=== PATIENT | female | born 1970 | race Two or more races ===

== ENCOUNTER 2024-06-22 21:56 | Emergency (ER) | payer MEDICAID, OTHER ==
[~2024-06-22] VITALS: Ht 157.5 cm; Wt 77.0 kg
[2024-06-22 22:24] LABS: Basophils # (auto) 0 10 ^3/uL (0-0.2); Basophils % (auto) 0.3 % (0.0-2.0); Eosinophils # (auto) 0.1 10 ^3/uL (0-0.8); Eosinophils % (auto) 1.3 % (0.0-7.0); Hemoglobin 14.1 g/dL (12.2-16.2); Lymphocytes # (auto) 3.5 10 ^3/uL (0.4-5.4); Lymphocytes % (auto) 43.6 % (10.0-50.0); Mean Corpuscular Hemoglobin 32.1 pg (28.0-32.0); Mean Corpuscular Hgb Conc. 34.4 g/dL (32.0-36.0); Mean Corpuscular Volume 93.3 fL (80.0-100.0); Monocytes # (auto) 0.3 10 ^3/uL (0-1.3); Monocytes % (auto) 4.2 % (0.0-12.0); Neutrophils # (auto) 4.1 10 ^3/uL (1.6-8.6); Neutrophils % (auto) 50.6 % (37.0-80.0); Nucleated Red Blood Cells % 0.1 %; Platelet Count (auto) 265 10^3/uL (140-450); White Blood Cell 8.1 10^3/uL (4.4-10.8)
--- NOTE | 2024-06-22 22:27 | ED.PDOC ---
History of Present Illness HPI Comments 54-year-old female came to emergency room via EMS due to dizziness. Patient states she has been having ear pain and sinus congestion for a while. Patient decided to boil some eucalyptus leaves earlier and inhale them to relieve the congestion. Patient however started having headaches, dizziness and started having with a multiple episodes of nausea and vomiting. Chief Complaint: Dizziness Time Seen by MD: 22:26 Reviewed Notes: Electrical Appliance Mechanic Notes Allergies: Coded Allergies: Tramadol (Verified Allergy, Unknown, 06/22/24) Information Source: Patient, Emergency Med Personnel Mode of Arrival: EMS Severity: Moderate Timing: Hours Duration: Since onset Prehospital treatment: None Past Medical History PAST MEDICAL HISTORY: GERD, High Lipids, Thyroid Surgical History: Denies all surgeries MOLD RUNNER History: Denies all MOLD RUNNER Hx Family History Family History: Reviewed,noncontributory to illness Social History Smoker: Non-Smoker Alcohol: Denies ETOH Use Drugs: Denies Drug Use Lives In: Home Constitutional: denies: chills, diaphoresis, fatigue, fever, malaise, sweats, weakness, others EENTM: reports: ear pain, nose congestion; denies: blurred vision, double vision, ear bleeding, ear discharge, ear drainage, ear ringing, eye pain, eye redness, hearing loss, mouth pain, mouth swelling, nasal discharge, nose bleeding, nose pain, photophobia, tearing, throat pain, throat swelling, voice changes, others Respiratory: denies: cough, hemoptysis, orthopnea, SOB at rest, shortness of breath, SOB with excertion, stridor, wheezing, others Cardiovascular: denies: chest pain, dizzy spells, diaphoresis, Dyspnea on exertion, edema, irregular heart beat, left arm pain, lightheadedness, palpitations, PND, syncope, others Gastrointestinal: reports: nausea, vomiting; denies: abdomen distended, abdominal pain, blood streaked bowels, constipated, diarrhea, dysphagia, difficulty swallowing, hematemesis, melena, poor appetite, poor fluid intake, rectal bleeding, rectal pain, others Genitourinary: denies: abnormal vagina bleeding, burning, dyspareunia, dysuria, flank pain, frequency, hematuria, incontinence, pain, , vagina discharge, urgency, others Neurological: reports: dizziness, headache; denies: fainting, left sided numbness, left sided weakness, numbness, paresthesia, pre-existing deficit, right sided numbness, right sided weakness, seizure, speech problems, tingling, tremors, weakness, others Musculoskeletal: denies: back pain, gout, joint pain, joint swelling, muscle pain, muscle stiffness, neck pain, others Integumetry: denies: bruises, change in color, change in hair/nails, dryness, laceration, lesions, lumps, rash, wounds, others Allergic/Immunocompromised: denies: Difficulty Healing, Frequent Infections, Hives, Itching, others Hematologic/Lymphatic: denies: anemia, blood clots, easy bleeding, easy bruisin g, swollen glands, others Endocrine: denies: excessive hunger, excessive sweating, excessive thirst, excessive urination, flushing, intolerance to cold, intolerance to heat, unexplained weight gain, unexplained weight loss, others Psychiatric: denies: anxiety, bipolar disorder, depression, hopeless, panic disorder, schizophrenia, sleepless, suicidal, others Physical Exam General Appearance: No Apparent Distress, Normal HEENT: Normal ENT Inspection, Pharynx Normal, TMs Normal Neck: Full Range of Motion, Non-Tender, Normal, Normal Inspection Respiratory: Chest Non-Tender, Lungs Clear, No Accessory Muscle Use, No Respir atory Distress, Normal Breath Sounds Cardiovascular: No Edema, No JVD, No Murmur, No Gallop, Normal Peripheral Pulses, Regular Rate/Rhythm Breast Exam: Deferred Gastrointestinal: No Organomegaly, Non Tender, No Pulsatile Mass, Normal Bowel Sounds, Soft Genitalia: Deferred Pelvic: Deferred Rectal: Deferred Extremities: No calf tenderness, Normal capillary refill, Normal inspection, Normal range of motion, Non-tender, No pedal edema Musculoskeletal : Apperance: Normal Neurologic: Alert, 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 Was a procedure done?: No Differential Dx Considerations may include: Sinusitis, pharyngitis, headache, dizziness X-Ray, Labs, Meds, VS Vital Signs Date Time Temp Pulse Resp B/P (MAP) Pulse Ox O2 Delivery O2 Flow Rate FiO2 06/22/24 22:50 62 14 97 Room Air* 0 21 06/22/24 22:50 97.7 62 14 111/68 (82) 97 97.7 06/22/24 22:10 97.6 60 20 140/76 (97) 97 97.6 06/22/24 22:08 58 Lab Test 06/22/24 22:15 Range/Units White Blood Count 8.1 4.4-10.8 10^3/uL Red Blood Count 4.40 4.0-5.20 10^6/uL Hemoglobin 14.1 12.2-16.2 g/dL Hematocrit 41.0 36.0-46.0 % Mean Corpuscular Volume 93.3 80.0-100.0 fL Mean Corpuscular Hemoglobin 32.1 H 28.0-32.0 pg Mean Corpuscular Hemoglobin Concent 34.4 32.0-36.0 g/dL Red Cell Distribution Width 12.0 11.8-14.3 % Platelet Count 265 140-450 10^3/uL Mean Platelet Volume 7.5 6.9-10.8 fL Neutrophils (%) (Auto) 50.6 37.0-80.0 % Lymphocytes (%) (Auto) 43.6 10.0-50.0 % Monocytes (%) (Auto) 4.2 0.0-12.0 % Eosinophils (%) (Auto) 1.3 0.0-7.0 % Basophils (%) (Auto) 0.3 0.0-2.0 % Neutrophils # (Auto) 4.1 1.6-8.6 10 ^3/uL Lymphocytes # (Auto) 3.5 0.4-5.4 10 ^3/uL Monocytes # (Auto) 0.3 0-1.3 10 ^3/uL Eosinophils # (Auto) 0.1 0-0.8 10 ^3/uL Basophils # (Auto) 0 0-0.2 10 ^3/uL Nucleated Red Blood Cells 0.1 % Sodium Level 139 136-145 mmol/L Potassium Level 2.6 L 3.5-5.1 mmol/L Chloride Level 106 98-107 mmol/L Carbon Dioxide Level 22 20-31 mmol/L Anion Gap 11 5-15 Blood Urea Nitrogen 8 L 9-23 mg/dL Creatinine 0.74 0.550-1.02 mg/dL Glomerular Filtration Rate Calc 95 >90 mL/min BUN/Creatinine Ratio 10.8 10.0-20.0 Serum Glucose 136 H 74-106 mg/dL Calcium Level 9.6 8.7-10.4 mg/dL Total Bilirubin 0.6 0.2-1.0 mg/dL Aspartate Amino Transferase (AST) 31 13-40 U/L Alanine Aminotransferase (ALT) 46 H 7-40 U/L Alkaline Phosphatase 96 46-116 U/L Troponin I High Sensitivity < 3 L </=34 ng/L Total Protein 7.7 5.7-8.2 g/dL Albumin 5.0 H 3.2-4.8 g/dL Current Medications Medications (Trade) Dose Ordered Sig/Mina Route Start Time Stop Time Status Last Admin Ondansetron HCl (Zofran) 4 mg ONCE ONCE IV 06/22/24 22:15 06/22/24 22:16 DC 06/22/24 23:00 Sodium Chloride 1,000 ml @ 1,000 mls/hr Q1H ONCE IV 06/22/24 22:15 06/22/24 23:14 DC 06/22/24 23:00 CHEST RADIOGRAPH Indication: nausea Technique: Single frontal view of the chest was obtained Comparison: None FINDINGS: Lines and Tubes: None Lungs: No focal consolidation. Pleura: No effusion. No pneumothorax. Cardiomediastinal contours: Unremarkable Bones: No acute osseous abnormality. IMPRESSION: 1. No acute cardiopulmonary disease. Time of 1ST Reevaluation: 22:17 Reevaluation 1ST: Unchanged Time of 2ND Reevaluation: 23:43 Reevaluation 2ND: Resolved Patient Education/Counseling: Diagnosis, Treatment, Prognosis, Need For Follow Up Family Education/Counseling: Diagnosis, Treatment, Prognosis, Need For Follow Up Additional Information Previous medical encounters reviewed: The following tests were ordered, and results were reviewed by me: Chest Xray: 1. No acute cardiopulmonary disease. Additional Information was gathered from interviewing the following independent historians: Paramedics I reviewed and agreed with the following test results read by other providers: cxr I discussed treatment and results with medical personnel and: Patient Comprehensive systems review obtained and negative except for what is stated in the HPI. pt is feeling improved. she would like to go home. i will prescribe zofran for her. i will also prescribe Motrin and Claritin for her sinus congestion Departure 1 Departure Time of Disposition: 23:45 Impression: Primary Impression: Sinus congestion Additional Impression: Nausea & vomiting Qualified Codes: R11.2 - Nausea with vomiting, unspecified Disposition: 01 HOME / SELF CARE / HOMELESS Condition: Good e-Prescriptions Ibuprofen Micronized (MOTRIN TABLET) 600 Mg Tb 600 MG PO TID PRN, #40 TAB *Black box warning-NSAIDS can increase risk of CT & hypertension, GI irritation, ulceration, bleed, perferation. Do not use post cardiac surgery. Use short duration/lowest effective dose. Prov: LAZARO MORALES MD 06/22/24 Loratadine (Claritin) 10 Mg Chw 10 MG PO DAILY for 5 Days, #5 TAB.CHEW Prov: LAZARO MORALES MD 06/22/24 Ondansetron Odt 4MG Tab (ZOFRAN PO) 4 Mg Tb 4 MG PO Q6HP PRN for 2 Days, #8 TAB ODT TAB-DISSOLVE IN MOUTH, THEN SWALLOW Prov: LAZAOR MORALES MD 06/22/24 Discharged With: Self, Spouse Critical Care Note Critical Care Time?: No Stability Stability form required: No Heart Score Heart Score: Heart Score Response (Comments) Value History N/A 0 EKG N/A 0 Age N/A 0 Risk Factors N/A 0 Troponin N/A 0 Total 0 I personally scribed for LAZARO MORALES MD ([email or web address]) on 06/22/24 at 22:27. Electronically submitted by Gonzales Sharp ([email or web address]). I personally scribed for LAZARO MORALES MD ([email or web address]) on 06/22/24 at 23:28. Electronically submitted by Gonzales Sharp ([email or web address]). LAZARO MORALES MD Jun 22, 2024 22:27
[2024-06-22 22:49] LABS: Alkaline Phosphatase 96 U/L (46-116); Anion Gap 11 (5-15); Aspartate Aminotransferase 31 U/L (13-40); BUN/Creatinine Ratio 10.8 (10.0-20.0); Bilirubin, Total 0.6 mg/dL (0.2-1.0); Calcium 9.6 mg/dL (8.7-10.4); Carbon Dioxide 22 mmol/L (20-31); Chloride 106 mmol/L (98-107); Sodium 139 mmol/L (136-145); Total Protein 7.7 g/dL (5.7-8.2)
[2024-06-22 22:50] VITALS: BP 111/68; PULSE 62; RESP 14; TEMP 97.7; O2SAT 97
[2024-06-22 22:52] LABS: Alanine Aminotransferase 46 U/L (7-40); Blood Urea Nitrogen 8 mg/dL (9-23); Glucose 136 mg/dL (74-106); Potassium 2.6 mmol/L (3.5-5.1)
[2024-06-22] MEDS: SODIUM CHLORIDE 0.9% 1,000 ML IV ONE (23:00)
[2024-06-22] MEDS: ONDANSETRON HCL 4 MG/2 ML VIAL IV ONE (23:00)
--- NOTE | 2024-06-22 23:03 | DVH ---
CHEST RADIOGRAPH Indication: nausea Technique: Single frontal view of the chest was obtained Comparison: None FINDINGS: Lines and Tubes: None Lungs: No focal consolidation. Pleura: No effusion. No pneumothorax. Cardiomediastinal contours: Unremarkable Bones: No acute osseous abnormality. IMPRESSION: 1. No acute cardiopulmonary disease.
[2024-06-22] MEDS: POTASSIUM CHL 20 Meq TABLET PO ONE (23:44)
[2024-06-22] MEDS ORDERED: IBU600T PO (23:46)
[2024-06-22] MEDS ORDERED: ZOFR4T PO (23:46)
[2024-06-22] MEDS ORDERED: [UNRECOGNIZED DRUG - CODE] PO (23:46)
--- NOTE | 2024-06-28 10:05 | ECG ---
[facility] Test Date: 2024-06-22 Test Time: 22:08:25 Pat Name: PRERNA MENDOZADepartment: ED Room: Gender: F Motorboat Mechanic Inboard/Outboard: TAMIA : 1970 Requested By: LAZARO MORALES Order Number: [id number] Reading MD: Marino Alonso Measurements Intervals [place] Rate: 58 P: 44 MS: 165 QRS: 6 QRSD: 84 T: -7 QT: 548 QTc: 539 Interpretive Statements Sinus rhythm Low voltage, precordial leads Probable anteroseptal infarct, old Prolonged QT interval Electronically Signed On 06-29-2024 13:35:08 PDT by Marino Alonso Please click the below link to view image of tracing.
== END 2024-06-23 00:18 | disposition home or self-care (01) ==
LOC: EDBD 21:56 → ER 21:56
DX: R09.81 Nasal congestion (principal); R11.2 Nausea with vomiting, unspecified; E03.9 Hypothyroidism, unspecified; E78.5 Hyperlipidemia, unspecified; K21.9 Gastro-esophageal reflux disease without esophagitis; Z88.5 Allergy status to narcotic agent
CPT/HCPCS: 36415; 71045; 80053; 82947; 84484; 85025; 93005; 96361; 96374; 99285; J2405; J7030

== ENCOUNTER 2024-06-28 10:53 | Inpatient (IN) | payer MEDICAID ==
[~2024-06-28] VITALS: Ht 152.4 cm; Wt 79.6 kg
[~2024-06-28 10:53] MED LIST: IBU600T PO; ZOFR4T PO; [UNRECOGNIZED DRUG - CODE] PO
--- NOTE | 2024-06-28 11:37 | ED.PDOC ---
HPI (NEURO) HPI Comments 54 y/o F, with PMHx of GERD and HLD presents to the ED for CC of dizziness. Patient states, that she has been experiencing symptoms of vertigo x6days with associated symptoms of nausea and vomiting. Patient relays, that she was seen at [facility] on both Tuesday (06/22/24) and Tuesday (06/23/24) and was discharged with unremarkable findings. Patient comments, that symptoms have worsened since last ED visit and has been unable to do daily activities. Patient reports, feeling as if the room is spinning around her. Patient denies blurred vision, headache, numbness, chills, or body-aches. No other associated symptoms, modifiers, recent injuries or sick contacts present at this time. Chief Complaint: Dizziness Time Seen by MD: 11:00 Primary Care Provider: UNKNOWN Reviewed Notes: Nurses Notes, Medications, Allergies Information Source: Patient Mode of Arrival: Wheelchair Severity: Moderate Dizziness/Weakness Severity: Unable to do activities Headache Severity: None Timing: Days Duration: Since onset Prehospital treatment: None Onset: At rest Circumstances: Spontaneous Symptoms: Vertigo Before: Normal During: Awake After: Normal Mentation History of: None Modifying factors: Nothing Associated Signs and Symptoms: Nausea, Vomiting Past Medical History PAST MEDICAL HISTORY: GERD, High Lipids, Thyroid Surgical History: Denies all surgeries 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 ELEMENTARY ASSISTANT PRINCIPAL Hx Family History Family History: Reviewed,noncontributory to illness Social History Smoker: Non-Smoker Alcohol: Denies ETOH Use Drugs: Denies Drug Use Lives In: Home Constitutional: denies: chills, diaphoresis, fatigue, fever, malaise, sweats, weakness, others EENTM: denies: blurred vision, double vision, ear bleeding, ear discharge, ear drainage, ear pain, ear ringing, eye pain, eye redness, hearing loss, mouth pain, mouth swelling, nasal discharge, nose bleeding, nose congestion, nose pain, photophobia, tearing, throat pain, throat swelling, voice changes, others Respiratory: denies: cough, hemoptysis, orthopnea, SOB at rest, shortness of breath, SOB with excertion, stridor, wheezing, others Cardiovascular: denies: chest pain, dizzy spells, diaphoresis, Dyspnea on exertion, edema, irregular heart beat, left arm pain, lightheadedness, palpitations, PND, syncope, others Gastrointestinal: reports: nausea, vomiting; denies: abdomen distended, abdomi nal pain, blood streaked bowels, constipated, diarrhea, dysphagia, difficulty swallowing, hematemesis, melena, poor appetite, poor fluid intake, rectal bleeding, rectal pain, others Genitourinary: denies: abnormal vagina bleeding, burning, dyspareunia, dysuria, flank pain, frequency, hematuria, incontinence, pain, , vagina discharge, urgency, others Neurological: reports: dizziness; denies: fainting, headache, left sided numbness, left sided weakness, numbness, paresthesia, pre-existing deficit, right sided numbness, right sided weakness, seizure, speech problems, tingling, tremors, weakness, others Musculoskeletal: denies: back pain, gout, joint pain, joint swelling, muscle pain, muscle stiffness, neck pain, others Integumetry: denies: bruises, change in color, change in hair/nails, dryness, laceration, lesions, lumps, rash, wounds, others Allergic/Immunocompromised: denies: Difficulty Healing, Frequent Infections, Hives, Itching, others Hematologic/Lymphatic: denies: anemia, blood clots, easy bleeding, easy bruising, swollen glands, others Endocrine: denies: excessive hunger, excessive sweating, excessive thirst, excessive urination, flushing, intolerance to cold, intolerance to heat, unexplained weight gain, unexplained weight loss, others Psychiatric: denies: anxiety, bipolar disorder, depression, hopeless, panic disorder, schizophrenia, sleepless, suicidal, others All Other Systems: Reviewed and Negative Physical Exam General Appearance: Moderate Distress HEENT: Normal ENT Inspection, Pharynx Normal, TMs Normal Neck: Full Range of Motion, Non-Tender, Normal, Normal Inspection Respiratory: Chest Non-Tender, Lungs Clear, No Accessory Muscle Use, No Respiratory Distress, Normal Breath Sounds Cardiovascular: No Edema, No JVD, No Murmur, No Gallop, Normal Peripheral Pulses, Regular Rate/Rhythm Breast Exam: Deferred Gastrointestinal: No Organomegaly, Non Tender, No Pulsatile Mass, Normal Bowel Sounds, Soft Genitalia: Deferred Pelvic: Deferred Rectal: Deferred Extremities: No calf tenderness, Normal capillary refill, Normal inspection, Normal range of motion, Non-tender, No pedal edema Musculoskeletal : Apperance: Normal Neurologic: Alert, 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 Was a procedure done?: No Differential Diagnosis (SZ) Seizure: Psychogenic Seizure, Closed Head Injury, CVA/TIA General Weakness: Vertigo: central, Vertigo: peripheral X-Ray, Labs, Meds, VS Vital Signs Date Time Temp Pulse Resp B/P (MAP) Pulse Ox O2 Delivery O2 Flow Rate FiO2 06/28/24 12:23 60 06/28/24 11:18 97.5 61 21 118/79 (92) 97 97.5 Lab Test 06/28/24 11:50 06/28/24 11:19 Range/Units White Blood Count 6.8 4.4-10.8 10^3/uL Red Blood Count 4.83 4.0-5.20 10^6/uL Hemoglobin 15.7 12.2-16.2 g/dL Hematocrit 45.3 # 36.0-46.0 % Mean Corpuscular Volume 93.8 80.0-100.0 fL Mean Corpuscular Hemoglobin 32.4 H 28.0-32.0 pg Mean Corpuscular Hemoglobin Concent 34.6 32.0-36.0 g/dL Red Cell Distribution Width 12.1 11.8-14.3 % Platelet Count 287 140-450 10^3/uL Mean Platelet Volume 7.3 6.9-10.8 fL Neutrophils (%) (Auto) 65.1 37.0-80.0 % Lymphocytes (%) (Auto) 29.6 10.0-50.0 % Monocytes (%) (Auto) 3.6 0.0-12.0 % Eosinophils (%) (Auto) 1.2 0.0-7.0 % Basophils (%) (Auto) 0.5 0.0-2.0 % Neutrophils # (Auto) 4.4 1.6-8.6 10 ^3/uL Lymphocytes # (Auto) 2.0 0.4-5.4 10 ^3/uL Monocytes # (Auto) 0.2 0-1.3 10 ^3/uL Eosinophils # (Auto) 0.1 0-0.8 10 ^3/uL Basophils # (Auto) 0 0-0.2 10 ^3/uL Nucleated Red Blood Cells 0.1 % Sodium Level 141 136-145 mmol/L Potassium Level 3.9 3.5-5.1 mmol/L Chloride Level 105 98-107 mmol/L Carbon Dioxide Level 27 20-31 mmol/L Anion Gap 9 5-15 Blood Urea Nitrogen 10 9-23 mg/dL Creatinine 0.83 0.550-1.02 mg/dL Glomerular Filtration Rate Calc 83 >90 mL/min BUN/Creatinine Ratio 12.0 10.0-20.0 Serum Glucose 105 74-106 mg/dL Calcium Level 10.2 8.7-10.4 mg/dL Troponin I High Sensitivity < 3 L </=34 ng/L POC Glucose 91 70-106 mg/dl [place] [id number] Ph: [phone] DIAGNOSTIC IMAGING Diagnostic Imaging Report : [id number] Signed PATIENT: PRERNA CAGLE EACCT: [id number] UNIT: [id number] : 1970 LOC: ER ROOM / BED: / AGE / SEX: 54 / F ADM STATUS: REG ER SERVICE 1131 ORDERING PHYSICIAN: BALBINA FLEMING MD PROCEDURE(s): HWOCT - HEAD WITHOUT CONTRAST REASON: dizzy ORDER NUMBER(s): [id number], ACCESSION NUMBER(s): [id number] CT brain without contrast CLINICAL INDICATION: Altered mental status FINDINGS: The study was performed in a multidetector scanner. This study performed taking axial images from the skull base up to the vertex. Both brain and bone windows are photographed. Dose lowering techniques have been used including automated exposure control and adjustment of mA and/or KV according to patient size. Normal and symmetrical shape and density of brain parenchyma above and below the tentorium is seen. There is no mass, midline shift or hydrocephalus. No intra/extra-axial collections demonstrated. There is no intracranial hemorrhage. The calvarium is intact. IMPRESSION: 1. Normal brain and skull. Computed Tomographic Radiation Dosimetry Report: Total CTDI vol = 54 mGy Total DLP = 954 mGy-cm All CT scans at this medical facility are performed using dose modulation techniques as appropriate to a performed exam including the following: Automated exposure control was utilized; adjustment of the MA and/or KvP according to patient size; and use of iterative reconstruction technique. ATED BY: ROGERS SANDERS MD DICTATED DATE/TIME: 06/28/24 120 SIGNED BY: ROGERS SANDERS MD SIGNED DATE/TIME: 06/28/24 1209 Patient alert. Complaining of dizziness. Vitals stable. Answering questions. Was seen here for same symptom for the past few days. CT of the head. Establish intravenous access. Was given Ativan. Reviewed her previous visit. Explained to the patient. Continue monitoring. Time of 1ST Reevaluation: 11:30 Reevaluation 1ST: Unchanged Patient Education/Counseling: Diagnosis, Treatment Family Education/Counseling: No Family Present Departure 1 Departure Time of Disposition: 11:48 Impression: Primary Impression: Autonomic disorder Disposition: ADMITTED INPATIENT Admit to: Med Surg Condition: Guarded Critical Care Note Critical Care Time?: No Stability Stability form required: No Heart Score Heart Score: Heart Score Response (Comments) Value History N/A 0 EKG N/A 0 Age N/A 0 Risk Factors N/A 0 Troponin N/A 0 Total 0 I personally scribed for BALBINA FLEMING MD ([email or web address]) on 06/28/24 at 11:37. Electronically submitted by Latha Rubio ([employer]). I personally scribed for BALBINA FLEMING MD ([email or web address]) on 06/28/24 at 12:23. Electronically submitted by Latha Rubio ([employer]). I personally scribed for BALBINA FLEMING MD ([email or web address]) on 06/28/24 at 12:28. Electronically submitted by Latha Rubio ([employer]). BALBINA FLEMING MD Jun 28, 2024 11:37
[2024-06-28 12:03] LABS: Basophils # (auto) 0 10 ^3/uL (0-0.2); Basophils % (auto) 0.5 % (0.0-2.0); Eosinophils # (auto) 0.1 10 ^3/uL (0-0.8); Eosinophils % (auto) 1.2 % (0.0-7.0); Hematocrit 45.3 % (36.0-46.0); Hemoglobin 15.7 g/dL (12.2-16.2); Lymphocytes % (auto) 29.6 % (10.0-50.0); Mean Corpuscular Hemoglobin 32.4 pg (28.0-32.0); Mean Corpuscular Hgb Conc. 34.6 g/dL (32.0-36.0); Mean Corpuscular Volume 93.8 fL (80.0-100.0); Monocytes # (auto) 0.2 10 ^3/uL (0-1.3); Monocytes % (auto) 3.6 % (0.0-12.0); Neutrophils # (auto) 4.4 10 ^3/uL (1.6-8.6); Neutrophils % (auto) 65.1 % (37.0-80.0); Nucleated Red Blood Cells % 0.1 %; Platelet Count (auto) 287 10^3/uL (140-450); Red Blood Cells 4.83 10^6/uL (4.0-5.20); Red Cell Distribution Width 12.1 % (11.8-14.3); White Blood Cell 6.8 10^3/uL (4.4-10.8)
--- NOTE | 2024-06-28 12:11 | DVH ---
CT brain without contrast CLINICAL INDICATION: Altered mental status FINDINGS: The study was performed in a multidetector scanner. This study performed taking axial image s from the skull base up to the vertex. Both brain and bone windows are photographed. Dose lowering techniques have been used including automated exposure control and adjustment of mA and /or KV according to patient size. Normal and symmetrical shape and density of brain parenchyma above and below the tentorium is seen. T here is no mass, midline shift or hydrocephalus. No intra/extra-axial collections demonstrated. There is no intracranial hemorrhage. The calvarium is intact. IMPRESSION: 1. Normal brain and skull. Computed Tomographic Radiation Dosimetry Report: Total CTDI vol = 54 mGy Total DLP = 954 mGy-cm All C T scans at this medical facility are performed using dose modulation techniques as appropriate to a p erformed exam including the following: Automated exposure control was utilized; adjustment of the MA and/or KvP according to patient size; and use of iterative reconstruction technique.
[2024-06-28 12:13] LABS: Chloride 105 mmol/L (98-107); Potassium 3.9 mmol/L (3.5-5.1); Sodium 141 mmol/L (136-145)
[2024-06-28 12:14] LABS: Anion Gap 9 (5-15); Calcium 10.2 mg/dL (8.7-10.4); Carbon Dioxide 27 mmol/L (20-31)
[2024-06-28 12:19] LABS: Blood Urea Nitrogen 10 mg/dL (9-23); Glucose 105 mg/dL (74-106)
--- NOTE | 2024-06-28 15:54 | DVHHP2 ---
History of Present Illness Reason for Visit: dizziness History of Present Illness 54-year-old female with a past medical history of GERD, hyperlipidemia, thyroid disease, and right ankle surgery, presenting with persistent dizziness for the past four days. The patient states that her dizziness initially began as intermittent but has worsened progressively, prompting two prior ED visits, during which full workups were reportedly negative, and she was discharged home. She was prescribed meclizine twice daily and Zofran, which she has been taking as directed, but reports no relief of symptoms. Today, her dizziness became more intense, described as room-spinning vertigo, especially worse with walking. She also reports a severe headache but denies visual changes, chest pain, shortness of breath, nausea, vomiting, diarrhea, melena, or hematochezia. In the ED, she was administered Ativan and IV normal saline, with partial relief. Initial lab and imaging workup included: CBC: Unremarkable, BMP: Within normal limits Troponin: Negative, CT head: Unremarkable, Given her ongoing symptoms, a n eurology consult was requested for further evaluation. Additional workup including TSH and CT of the temporal bones/inner ears has been ordered to evaluate for vestibular pathology. Past Medical History see HPI above Past Surgical History See HPI above Family History Reviewed, non-contributory to the management of this case. Past Social History The patient lives at home, denies smoking, alcohol or illicit drugs abuse. Review of Systems Constitutional: No: Fever, Chills, Sweats, Weakness, Malaise, Other Eyes: No: Pain, Vision change, Conjunctivae inflammation, Eyelid inflammation, Other, Redness ENT: No: Ear pain, Ear discharge, Nose pain, Nose discharge, Nose congestion, Mouth pain, Mouth swelling, Throat pain, Throat swelling, Other Respiratory: No: Cough, Dry, Shortness of breath, SOB with excertion, Wheezing, Hemoptysis, Pleuritic Pain, Sputum, Wheezing, Other Cardiovascular: No: Chest Pain, Palpitations, Orthopnea, Paroxysmal Noc. Dyspnea, Edema, Lt Headedness, Other Gastrointestinal: No: Nausea, Vomiting, Abdominal Pain, Diarrhea, Constipation, Melena, Hematochezia, Other Genitourinary: No Dysuria, No Frequency, No Incontinence, No Hematuria, No Retention, No Other Musculoskeletal: No: other, neck pain, shoulder pain, arm pain, back pain, hand pain, leg pain, foot pain Skin: No: Rash, Lesions, Jaundice, Bruising, Other Neurological: Other (dizziness); No: Weakness, Numbness, Incoordination, Change in speech, Confusion, Seizures Allergies: Coded Allergies: Tramadol (Verified Allergy, Unknown, 06/22/24) Exam Vital Signs Vital Signs Date Time Temp Pulse Resp B/P (MAP) Pulse Ox O2 Delivery O2 Flow Rate FiO2 06/28/24 12:23 60 06/28/24 11:18 97.5 21 118/79 (92) 97 97.5 General Appearance: Alert, Oriented X3, Cooperative, No acute distress HEENT: Atraumatic, PERRLA, EOMI, Mucous membr. moist/pink Respiratory: Clear to auscultation, Normal air movement Cardiovascular: Regular rate, Normal S1, Normal S2, No murmurs Abdominal: Normal bowel sounds, Soft, No tenderness, No hepatospenomegaly, No masses Extremities: No clubbing, No cyanosis, No edema, Normal pulses, No tenderness/swelling Skin: No rashes, No breakdown, No significant lesion Neuro: Normal gait, Normal speech, Strength at 5/5 X4 ext, Normal tone, Sensation intact, Cranial nerves 3-12 NL, Other Labs/Xrays CT scan of the brain unremarkable I reviewed labs, imaging CT scan abdomen pelvis, EKG and all diagnostic studies on this patient from ED records and the medical chart Labs Test 06/28/24 11:50 06/28/24 11:19 Range/Units White Blood Count 6.8 4.4-10.8 10^3/uL Red Blood Count 4.83 4.0-5.20 10^6/uL Hemoglobin 15.7 12.2-16.2 g/dL Hematocrit 45.3 # 36.0-46.0 % Mean Corpuscular Volume 93.8 80.0-100.0 fL Mean Corpuscular Hemoglobin 32.4 H 28.0-32.0 pg Mean Corpuscular Hemoglobin Concent 34.6 32.0-36.0 g/dL Red Cell Distribution Width 12.1 11.8-14.3 % Platelet Count 287 140-450 10^3/uL Mean Platelet Volume 7.3 6.9-10.8 fL Neutrophils (%) (Auto) 65.1 37.0-80.0 % Lymphocytes (%) (Auto) 29.6 10.0-50.0 % Monocytes (%) (Auto) 3.6 0.0-12.0 % Eosinophils (%) (Auto) 1.2 0.0-7.0 % Basophils (%) (Auto) 0.5 0.0-2.0 % Neutrophils # (Auto) 4.4 1.6-8.6 10 ^3/uL Lymphocytes # (Auto) 2.0 0.4-5.4 10 ^3/uL Monocytes # (Auto) 0.2 0-1.3 10 ^3/uL Eosinophils # (Auto) 0.1 0-0.8 10 ^3/uL Basophils # (Auto) 0 0-0.2 10 ^3/uL Nucleated Red Blood Cells 0.1 % Sodium Level 141 136-145 mmol/L Potassium Level 3.9 3.5-5.1 mmol/L Chloride Level 105 98-107 mmol/L Carbon Dioxide Level 27 20-31 mmol/L Anion Gap 9 5-15 Blood Urea Nitrogen 10 9-23 mg/dL Creatinine 0.83 0.550-1.02 mg/dL Glomerular Filtration Rate Calc 83 >90 mL/min BUN/Creatinine Ratio 12.0 10.0-20.0 Serum Glucose 105 74-106 mg/dL Calcium Level 10.2 8.7-10.4 mg/dL Troponin I High Sensitivity < 3 L </=34 ng/L POC Glucose 91 70-106 mg/dl Assessment/Plan Assessment/Plan 54-year-old female with several days of worsening vertigo and headache, refractory to meclizine, with normal imaging and labs to date. Currently under evaluation for central vs. peripheral causes of vertigo. acute Persistent dizziness / vertigo unclear etiology ct brain negative Worsened over 4 days, described as spinning sensation/Worse with ambulation Trial of meclizine and Zofran unsuccessful Plan: Admit for observation and further workup ordered Neurology consult for evaluation of central cause (e.g., vestibular migr bronson, brainstem pathology) CT IA to evaluate for inner ear pathology Check TSH to rule out metabolic cause Continue scheduled meclizine and PRN Zofran Reassess frequently for changes in mental status or focal deficits acute Headache associated with dizziness Severe but no red-flag features (no vision change, neck stiffness, or focal findings) Plan: Monitor neuro status Treat with meclizine tid Avoid opiates or sedatives unless severe chronic History of thyroid disease Possible contributor to symptoms Plan: TSH ordered Adjust thyroid medications only if abnormal acute Hydration and symptom support Received IV fluids in ED Continue IV fluids as needed Monitor for orthostasis fen/ppx diet ivf no dvt ppx since pt is ambulatory scd no gi ppx since no hx of gerds or gi bleed DISPOSITION Admit for further evaluation of vertigo. Neurology and imaging pending. Continue symptomatic treatment, monitor for worsening symptoms, and reassess upon results of CT of ears and thyroid studies. Plan discussed with: Patient Date of Service: Jun 28, 2024 Billing Provider: JF MIRANDA DNP Common Visit Codes: [id number] INP/OBS CARE (HIGH) JF MIRANDA DNP Jun 28, 2024 15:54
[2024-06-28] MEDS ORDERED: MORPHINE SULFATE INJ 2 MG/ml SYRG IV PRN (16:45)
[2024-06-28] MEDS ORDERED: DOCUSATE SOD 100 MG CAP PO PRN (16:45)
[2024-06-28] MEDS ORDERED: NITROGLYCERIN 0.4 MG SL TAB SL PRN (16:45)
--- NOTE | 2024-06-28 17:34 | DVH ---
INDICATION: eval for acute vertigo EXAM DATE: 06/28/2024 04:42 PM COMPARISON: CT head 06/29/2023 TECHNIQUE: CT of the IAC without intravenous contrast. RADIATION DOSE: CTDIvol: 57.82 mGy, DLP: 589.16 mGy*cm FINDINGS: Right: The external auditory canal appears intact. The middle ear cavity is clear. The ossicular chain sergei ears intact. The facial nerve describes a normal course. No inner ear abnormality is identified. T he tegmen appears intact. The semicircular canals appear covered by bone. The mastoid air cells are well aerated and pneumatized. Left: The external auditory canal appears intact. The middle ear cavity is clear. The ossicular chain sergei ears intact. The facial nerve describes a normal course. No inner ear abnormality is identified. T he tegmen appears intact. The semicircular canals appear covered by bone. The mastoid air cells are well aerated and pneumatized. The limited visualized soft tissues are otherwise unremarkable. Chronic deformity of the left lamina papyracea. The orbits and globes unremarkable. IMPRESSION: CT of the temporal bones within normal limits.
--- NOTE | 2024-06-28 21:11 | DVHINCON2 ---
Date of service: Jun 28, 2024 Referring Physician Priya Reason for Consultation Evaluation for acute intractable dizziness despite medicine use History of Present Illness Mr. Ruben Mccarthy is a 54 years old right-handed female with a history of dyslipidemia, thyroid disorder, GERD, she came to the [facility] on 06/28/2024 with a chief complaint of dizziness. At this time, she was alert and fully oriented, he provided the following history without bilingual staff help Since 06/22/24, she was had constant dizziness where everything is spinning around, with unsteady gait, nausea, vomiting, blurry vision on the left side of the visual field, she has been bed-bound since. She feels left ear is blocked and sometimes the left ear is sensitive to noise. She denies focal weakness or numbness, she was never had similar problems previously, CBC, 06/28/2024: Unremarkable BMP, 06/28/2024: Unremarkable CMP, 06/22/2024: Unremarkable CT head, 06/28/2024: Normal brain and skull. CT, internal auditory canal, 06/28/2024: CT of the temporal bones within normal limits. Past Medical History Dyslipidemia, thyroid disorder, GERD Past Surgical History Right ankle fracture repair Family History Diabetes, cancer Social History She has no history of tobacco smoking, alcohol or drug abuse Allergies: Coded Allergies: Tramadol (Verified Allergy, Unknown, 06/22/24) Home Meds Active Scripts Ibuprofen Micronized (MOTRIN TABLET) 600 Mg Tb, 600 MG PO TID PRN, #40 TAB *Black box warning-NSAIDS can increase risk of UT & hypertension, GI irritation, ulceration, bleed, perferation. Do not use post cardiac surgery. Use short duration/lowest effective dose. Prov:LAZARO MORALES MD 06/22/24 Loratadine (Claritin) 10 Mg Chw, 10 MG PO DAILY for 5 Days, #5 TAB.CHEW Prov:LAZARO MORALES MD 06/22/24 Ondansetron Odt 4MG Tab (ZOFRAN PO) 4 Mg Tb, 4 MG PO Q6HP PRN for 2 Days, #8 TAB ODT TAB-DISSOLVE IN MOUTH, THEN SWALLOW Prov:LAZARO MORALES MD 06/22/24 Current Medications Current Medications Medications (Trade) Dose Ordered Sig/Mina Route PRN Reason Start Time Stop Time Status Last Admin Sodium Chloride 1,000 ml @ 120 mls/hr Q8H20M IV 06/28/24 16:45 Ondansetron HCl (Zofran) 4 mg Q4HP PRN IV NAUSEA / VOMITING 06/28/24 16:45 Docusate Sodium (Colace Capsule) 100 mg BIDPRN PRN PO FOR CONSTIPATION 06/28/24 16:45 Morphine Sulfate 2 mg Q4HPRN PRN IV SEVERE PAIN (7-10 PAIN SCALE) 06/28/24 16:45 Hold Nitroglycerin (Ntrostat Sublingual) 0.4 mg Q5MINP PRN SL FOR CHEST PAIN 06/28/24 16:45 Meclizine HCl (Antivert Tablet) 25 mg Q8HPRN PRN PO DIZZINESS 06/28/24 16:45 Review of Systems As above, the other systems are negative Vital Signs Vital Signs Date Time Temp Pulse Resp B/P (MAP) Pulse Ox O2 Delivery O2 Flow Rate FiO2 06/28/24 12:23 60 06/28/24 11:18 97.5 21 118/79 (92) 97 97.5 Physical Exam GENERAL EXAM: General: the patient is well developed and nourished. No acute distress. HEENT: Normocephalic, neck is supple, no carotid bruits. No mass. RESPIRATORY: Normal respiratory effort with symmetrical lung expansion. Lungs clear to auscultation. CARDIOVASCULAR: Regular rate and rhythm with no murmurs. S1, S2. ABDOMEN: Soft, nontender, normal bowel sound NEUROLOGICAL: MENTAL STATUS: Awake and alert. Oriented to person, place, time and general circumstances. Able to give personal history SPEECH, LANGUAGE, HIGHER CORTICAL FUNCTION: no aphasia or dysathria. CRANIAL NERVES: #2: Intact visual raygoza to confrontation. The optic discs were sharp. #3,4,6: Pupils are equal, round and reactive. EOMs full and conjugate. No nystagmus. #5: Facial sensation intact in all three divisions bilaterally. Mandibular strength intact. #7: Facial muscles symmetrical and strength intact. #8: Hearing grossly normal to voice. #9,10: Uvula and soft palate rise in the midline. Swallow and voice are normal. #11: Trapezius and sternomastoid strength intact bilaterally. #12: Tongue midline. No fasciculations or atrophy. SENSATION: Sensation to touch and pinprick is normal. MOTOR: Normal tone in the upper and lower extremity. Normal muscle bulk. No fasciculations. No abnormal movements or posturing. Muscle strength of the major groups in the upper extremities is 5/5. Muscle strength of the major groups in the lower extremities is 5/5. REFLEXES: Deep tendon reflexes are symmetrical. No pathological reflexes. CEREBELLAR/COORDINATION: Finger to nose is normal bilaterally. GAIT/STATION: deferred. Labs/Diagnostic Data Labs Test 06/28/24 11:50 06/28/24 11:19 Range/Units White Blood Count 6.8 4.4-10.8 10^3/uL Red Blood Count 4.83 4.0-5.20 10^6/uL Hemoglobin 15.7 12.2-16.2 g/dL Hematocrit 45.3 # 36.0-46.0 % Mean Corpuscular Volume 93.8 80.0-100.0 fL Mean Corpuscular Hemoglobin 32.4 H 28.0-32.0 pg Mean Corpuscular Hemoglobin Concent 34.6 32.0-36.0 g/dL Red Cell Distribution Width 12.1 11.8-14.3 % Platelet Count 287 140-450 10^3/uL Mean Platelet Volume 7.3 6.9-10.8 fL Neutrophils (%) (Auto) 65.1 37.0-80.0 % Lymphocytes (%) (Auto) 29.6 10.0-50.0 % Monocytes (%) (Auto) 3.6 0.0-12.0 % Eosinophils (%) (Auto) 1.2 0.0-7.0 % Basophils (%) (Auto) 0.5 0.0-2.0 % Neutrophils # (Auto) 4.4 1.6-8.6 10 ^3/uL Lymphocytes # (Auto) 2.0 0.4-5.4 10 ^3/uL Monocytes # (Auto) 0.2 0-1.3 10 ^3/uL Eosinophils # (Auto) 0.1 0-0.8 10 ^3/uL Basophils # (Auto) 0 0-0.2 10 ^3/uL Nucleated Red Blood Cells 0.1 % Sodium Level 141 136-145 mmol/L Potassium Level 3.9 3.5-5.1 mmol/L Chloride Level 105 98-107 mmol/L Carbon Dioxide Level 27 20-31 mmol/L Anion Gap 9 5-15 Blood Urea Nitrogen 10 9-23 mg/dL Creatinine 0.83 0.550-1.02 mg/dL Glomerular Filtration Rate Calc 83 >90 mL/min BUN/Creatinine Ratio 12.0 10.0-20.0 Serum Glucose 105 74-106 mg/dL Calcium Level 10.2 8.7-10.4 mg/dL Troponin I High Sensitivity < 3 L </=34 ng/L POC Glucose 91 70-106 mg/dl Assessment Vertigo Mnire disease Acute stroke Gait disturbance secondary to vertigo Left-sided blurred vision Plan/Recommendation Monitoring Supportive treatment Telemetry MR brain scan IV fluid Meclizine 25 mg Q 8 hours p.r.n. More recommendation per clinical course Prognosis: Poor This medical document was created using an electronic medical record system with [employer] dictation system. Although this document has been carefully reviewed, there may still be some phonetic and typographical errors. These areas are purely typographical due to imperfections of the software programs, and do not reflect any compromise in the patient's medical care. Plan discussed with: Patient, Other STEPHANIE WERNER MD Jun 28, 2024 21:11
[2024-06-28] MEDS: SODIUM CHLORIDE 0.9% 1,000 ML IV SCH (21:43)
[2024-06-28] MEDS: LORazepam 2MG/ML-1ML VIAL IV ONE (21:46)
[2024-06-28] MEDS: SODIUM CHLORIDE 0.9% 1,000 ML IV ONE (21:57)
[2024-06-28] MEDS ORDERED: LORazepam 2MG/ML-1ML VIAL IV PRN (22:00)
[2024-06-29 04:48] VITALS: PULSE 58; RESP 18
[2024-06-29 05:39] LABS: Basophils # (auto) 0 10 ^3/uL (0-0.2); Basophils % (auto) 0.2 % (0.0-2.0); Eosinophils # (auto) 0.1 10 ^3/uL (0-0.8); Eosinophils % (auto) 1.6 % (0.0-7.0); Hematocrit 40.3 % (36.0-46.0); Lymphocytes # (auto) 2.6 10 ^3/uL (0.4-5.4); Lymphocytes % (auto) 43.2 % (10.0-50.0); Mean Corpuscular Hemoglobin 32.1 pg (28.0-32.0); Mean Corpuscular Hgb Conc. 34.8 g/dL (32.0-36.0); Mean Corpuscular Volume 92.3 fL (80.0-100.0); Monocytes # (auto) 0.3 10 ^3/uL (0-1.3); Monocytes % (auto) 5.7 % (0.0-12.0); Neutrophils % (auto) 49.3 % (37.0-80.0); Nucleated Red Blood Cells % 0.1 %; Platelet Count (auto) 258 10^3/uL (140-450); Red Blood Cells 4.36 10^6/uL (4.0-5.20)
[2024-06-29 05:50] LABS: Alanine Aminotransferase 37 U/L (7-40); Albumin 4.4 g/dL (3.2-4.8); Alkaline Phosphatase 74 U/L (46-116); Anion Gap 7 (5-15); Aspartate Aminotransferase 23 U/L (13-40); BUN/Creatinine Ratio 12.8 (10.0-20.0); Bilirubin, Total 0.5 mg/dL (0.2-1.0); Blood Urea Nitrogen 11 mg/dL (9-23); Calcium 9.3 mg/dL (8.7-10.4); Carbon Dioxide 27 mmol/L (20-31); Chloride 106 mmol/L (98-107); Glucose 94 mg/dL (74-106); Potassium 3.9 mmol/L (3.5-5.1); Sodium 140 mmol/L (136-145); Total Protein 6.9 g/dL (5.7-8.2)
--- NOTE | 2024-06-29 08:21 | ECG ---
[facility] Test Date: 2024-06-28 Test Time: 11:10:49 Pat Name: PRERNA MENDOZADepartment: ER Room: [address] [place] [address] A Gender: F Acquisition Lead: JEM : 1970 Requested By: BALBINA FLEMING Order Number: [id number] Reading MD: Marino Alonso Measurements Intervals Willard Rate: 60 P: 43 OH: 153 QRS: 2 QRSD: 85 T: 40 QT: 446 QTc: 446 Interpretive Statements Sinus rhythm Electronically Signed On 06-29-2024 13:44:38 PDT by Marino Alonso Please click the below link to view image of tracing.
[2024-06-29 08:41] LABS: Folate (Folic Acid) 18.32 ng/mL (>5.38)
--- NOTE | 2024-06-29 11:26 | DVHPNRES ---
Progress Note Date Seen: Jun 29, 2024 Resident Creating Document: FAM KENNEDY RESIDENT Medical Necessity Reason Pt with a Central, PICC or Fol: No Subjective Review of Systems This is a 54-year-old female with a past medical history of GERD, hyperlipidemia, hypothyroidism presented to the ED with a chief complaint of continuous dizziness and vertigo associated with nausea and vomiting for last 4 days prior to this admission. The patient states that her dizziness initially began as intermittent but has worsened progressively, prompting two prior ED visits, during which full workups were reportedly negative, and she was discharged home. She was prescribed meclizine twice daily and Zofran, which she has been taking as directed, but reports no relief of symptoms. Today, her dizziness became more intense, described as room-spinning vertigo, especially worse with walking. She also reports a severe headache but denies visual changes, chest pain, shortness of breath, nausea, vomiting, diarrhea, melena, or hematochezia. Patient was seen and examined on the bedside. He is alert oriented x3. Complaint of vertigo and nausea and mentioned feeling better than yesterday and also complaint of tingling, numbness in the left face and left upper limb. Constitutional: No: Fever, Chills, Sweats, Weakness, Malaise, Other Eyes: No: Pain, Vision change, Conjunctivae inflammation, Eyelid inflammation, Other, Redness ENT: No: Ear pain, Ear discharge, Nose pain, Nose discharge, Nose congestion, Mouth pain, Mouth swelling, Throat pain, Throat swelling, Other Respiratory: Shortness of breath, improving No: Cough, Dry,Wheezing, Hemoptysis, Pleuritic Pain, Sputum, Wheezing, Other Cardiovascular: No: Chest Pain, Palpitations, Orthopnea, Paroxysmal Noc. Dyspnea, Edema, Lt Headedness, Other Gastrointestinal: No: Nausea, Vomiting, Abdominal Pain, Diarrhea, Constipation, Melena, Hematochezia, Other Musculoskeletal: No: other, neck pain, shoulder pain, arm pain, back pain, hand pain, leg pain, foot pain Neurological:; Tingling ,numbness, blurred vision, No: Weakness, Incoordination, Change in speech, Confusion, Seizures Objective vital signs Vital Sign Date Time Temp Pulse Resp B/P (MAP) Pulse Ox O2 Delivery O2 Flow Rate FiO2 06/29/24 10:00 62 13 120/81 (94) 98 06/29/24 08:26 Room Air* 0 21 06/29/24 08:26 98.2 98.2 Total Intake and Output 06/28/24 06/28/24 06/29/24 15:00 23:00 07:00 Intake Total 1600 ml Balance 1600 ml medications Current Medications Medications Dose Ordered Sig/Mina Route Start Time Stop Time Status Last Admin Dose Admin Sodium Chloride 1,000 ml @ 120 mls/hr Q8H20M IV 06/28/24 16:45 06/29/24 01:30 120 MLS/HR Ondansetron HCl 4 mg Q4HP PRN IV 06/28/24 16:45 Docusate Sodium 100 mg BIDPRN PRN PO 06/28/24 16:45 Morphine Sulfate 2 mg Q4HPRN PRN IV 06/28/24 16:45 Hold Nitroglycerin 0.4 mg Q5MINP PRN SL 06/28/24 16:45 Meclizine HCl 25 mg Q8HPRN PRN PO 06/28/24 16:45 Lorazepam 1 mg ONCE PRN IV 06/28/24 22:00 Examination Physical examination: General Appearance: Alert, Oriented X3, Cooperative, mild distress HEENT: Atraumatic, PERRLA, EOMI, Mucous membrane moist/pink Respiratory: Clear to auscultation, Normal air movement Cardiovascular: Regular rate, Normal S1, Normal S2, No murmurs, no chest wall tenderness Abdominal: Normal bowel sounds, Soft, No tenderness, No hepatospenomegaly, No masses Extremities: No clubbing, No cyanosis, No edema, Normal pulses, No tenderness/swelling Skin: No rashes, No breakdown, No significant lesion Neuro: Normal speech, Strength at 5/5 X4 ext, Normal tone, Sensation intact, grossly intact cranial nerves. Psych/Mental Status: Mental status NL, Mood NL laboratory and microbiology Laboratory Tests 06/29/24 04:58 Test 06/29/24 04:58 Range/Units Serum Glucose 94 74-106 mg/dL Labs and/or images reviewed: Labs reviewed by me, Image(s) reviewed by me Problem List/Assessment/Plan Problem List/Assessment/Plan Assessment and plan: # Acute vertigo, tingling and numbness, rule out stroke # Possible transient ischemic attack # Left-sided blurred vision # Possible benign paroxysmal positional vertigo. # Possible Meniere's disease # Gait disturbance secondary to vertigo - Head CT without contrast demonstrated normal brain and skull - CT of the internal auditory canal without IV contrast demonstrated temporal bones within normal limits, chronic deformity of the left lamina papyracea. - MRI of the head demonstrated no acute intracranial abnormality. - EKG with normal sinus rhythm - Neurology on board - Meclizine 25 mg Q 8 p.r.n. - IV normal saline at 120 mL/hour # Dyslipidemia - Atorvastatin 20 mg at HS # Chronic hypothyroidism - Levothyroxine 25 mcg at q.a.m. # PUD prophylaxis - Pepcid 20 mg p.o. daily # DVT prophylaxis - Lovenox 40 mg sc daily. Goal of care discussed with the patient for more than 20 minutes full code Plan discussed with Dr. Baldwin Plan discussed with: Patient, Other My Orders My Orders Orders - FAM KENNEDY Procedure Category Date Status Time Orthostatic Vital ORDERS 06/29/24 Transmitted Signs 08:07 Echo 2d Mode Cardiac US 06/29/24 Logged DOP 08:09 Date of Service: Jun 29, 2024 Billing Provider: JOSHUA BALDWIN MD Common Visit Codes: [id number] INP/OBS CARE(HIGH) FAM KENNEDY Jun 29, 2024 11:26 JOSHUA BALDWIN MD Jun 29, 2024 16:48
--- NOTE | 2024-06-29 12:44 | DVH ---
PROCEDURE: MRI OF THE BRAIN WITHOUT CONTRAST. CLINICAL INDICATION: 54 years old, Female; Vertigo. TECHNIQUE: Multiplanar, multi sequence MRI of the brain was performed without intravenous contrast. COMPARISON: CT scan of the head performed on 06/28/2024. FINDINGS: The signal abnormality of the brain parenchyma is within normal limits. There are no areas of restric darrell diffusion to suggest acute infarct. No evidence of space occupying mass lesion, extra-axial colle ctions or hemorrhage is noted. The ventricles, sulci and basal cisterns are intact. There is no signa l abnormality in the posterior fossa. The paranasal sinuses and mastoid air cells are well pneumatized. The orbits and nasopharynx are inta ct. The osseous structures are intact. The vessels of the skull base demonstrate signal void consistent with patency. IMPRESSION: 1. No acute intracranial abnormality. Normal MRI of the brain without intravenous contrast.
[2024-06-29] MEDS: FAMOTIDINE 20 MG TAB PO ONE (12:54)
--- NOTE | 2024-06-29 13:25 | DVHPN2 ---
Progress Note - Dictate Date Seen: Jun 29, 2024 Medical Necessity Reason Pt with a Central, PICC or Fol: No Subjective Mr. Ruben Mccarthy is a 54 years old right-handed female with a history of dyslipidemia, thyroid disorder, GERD, she came to the [facility] on 06/28/2024 with a chief complaint of dizziness. I have seen and examined the patient, I have discussed with her nurse, she was doing okay, alert and fully oriented, our bilingual staff helped me She reports the spinning sensation remained about the same as yesterday. Since 06/28/2024 10:00 a.m. she was numbness in the small area below the left eye, and the left side of lower lip. She denies numbness/weakness in the extremities. She feels the left ear is clogged No tenderness to palpation in the bilateral mastoid processes CBC, 06/28/2024: Unremarkable BMP, 06/28/2024: Unremarkable CMP, 06/22/2024: Unremarkable CT head, 06/28/2024: Normal brain and skull. CT, internal auditory canal, 06/28/2024: CT of the temporal bones within normal limits MRI head, 06/29/2024: No acute intracranial abnormality. Normal MRI of the brain without intravenous contrast vital signs Vital Sign Date Time Temp Pulse Resp B/P (MAP) Pulse Ox O2 Delivery O2 Flow Rate FiO2 06/29/24 10:00 62 13 120/81 (94) 98 06/29/24 08:26 Room Air* 0 21 06/29/24 08:26 98.2 98.2 Total Intake and Output 06/28/24 06/28/24 06/29/24 15:00 23:00 07:00 Intake Total 1600 ml Balance 1600 ml medications Current Medications Medications Dose Ordered Sig/Mina Route Start Time Stop Time Status Last Admin Dose Admin Sodium Chloride 1,000 ml @ 120 mls/hr Q8H20M IV 06/28/24 16:45 06/29/24 01:30 120 MLS/HR Ondansetron HCl 4 mg Q4HP PRN IV 06/28/24 16:45 Docusate Sodium 100 mg BIDPRN PRN PO 06/28/24 16:45 Morphine Sulfate 2 mg Q4HPRN PRN IV 06/28/24 16:45 Hold Nitroglycerin 0.4 mg Q5MINP PRN SL 06/28/24 16:45 Meclizine HCl 25 mg Q8HPRN PRN PO 06/28/24 16:45 Lorazepam 1 mg ONCE PRN IV 06/28/24 22:00 Levothyroxine Sodium 25 mcg QAM@0600 PO 06/30/24 06:00 Atorvastatin Calcium 20 mg HS PO 06/29/24 22:00 Famotidine 20 mg DAILY PO 06/30/24 10:00 objective General: the patient is well developed and nourished. No acute distress. MENTAL STATUS: Awake and alert. Oriented to person, place, time and general circumstances. Able to give personal history SPEECH, LANGUAGE, HIGHER CORTICAL FUNCTION: no aphasia or dysathria. CRANIAL NERVES: Pupils are equal, round and reactive. EOMs full and conjugate. No nystagmus. Facial sensation intact in all three divisions bilaterally. Mandibular strength intact. Facial muscles symmetrical and strength intact. SENSATION: Sensation to touch and pinprick is normal. MOTOR: Normal tone in the upper and lower extremity. Normal muscle bulk. No fasciculations. No abnormal movements or posturing. Muscle strength of the major groups in the extremities is 5/5. REFLEXES: Deep tendon reflexes are symmetrical. No pathological reflexes. CEREBELLAR/COORDINATION: Finger to nose is normal bilaterally. GAIT/STATION: deferred laboratory and microbiology Laboratory Tests 06/29/24 04:58 Test 06/29/24 04:58 Range/Units Serum Glucose 94 74-106 mg/dL Problem List Vertigo Mnire disease Acute stroke Gait disturbance secondary to vertigo Left-sided blurred vision So far the etiology of her complaints is unknown Assessment/Plan Monitoring Supportive treatment Telemetry IV fluid Meclizine 25 mg Q 8 hours p.r.n. Physical therapy More recommendation per clinical course This medical document was created using an electronic medical record system with [employer] dictation system. Although this document has been carefully reviewed, there may still be some phonetic and typographical errors. These areas are purely typographical due to imperfections of the software programs, and do not reflect any compromise in the patient's medical care. Prognosis poor Plan discussed with: Patient, Other Total Time (mins): 35 STEPHANIE WERNER MD Jun 29, 2024 13:25
[2024-06-29 17:03] VITALS: BP 124/78; PULSE 64; RESP 18; TEMP 98.2; O2SAT 98
[2024-06-29 17:06] LABS: Urine Bacteria None Seen /hpf (None Seen)
[2024-06-29 17:20] LABS: Urine Blood Negative /uL (Negative); Urine Clarity Clear (Clear); Urine Color Light-Yellow (Yellow); Urine Protein, UAD Negative (Negative); Urine Specific Gravity 1.008 (1.001-1.035); Urine Squamous Epithelial Cell FEW /hpf (<5); Urine Urobilinogen Normal (Negative); Urine WBC 4 /HPF (0-5); Urine pH 6.5 (5.0-9.0)
[2024-06-29 17:33] VITALS: RESP 18
[2024-06-29 21:00] VITALS: BP 101/49; PULSE 59; RESP 15; TEMP 98.2; O2SAT 92
[2024-06-29] MEDS: ATORVASTATIN 20 MG TAB PO SCH (21:46)
[2024-06-30] VITALS (7 sets, daily range): BP systolic 91–124; BP diastolic 56–91; PULSE 55–71; RESP 15–20; TEMP 97.3–98.1; O2SAT 94–100
--- NOTE | 2024-06-30 01:23 | DVHSR ---
APPROVED REPORT EXAM: Two-dimensional and M-mode echocardiogram with Doppler and color Doppler. Blood Pressure: 116/63 mmHg INDICATION Dizziness and Vertigo RISK FACTORS Height: 62, Weight: 163 DIMENSIONS LVDd4.4 (3.8-5.7cm)LA (2D)4.1 (1.9-4.0cm)Aortic Root3.2 (2.0-3.7cm) LVDs3.1 (2.5-4.0cm)LA (MM) (1.9-4.0cm)Aortic Cusp Exc1.9 (1.5-2.0cm) EF (%) 58.0 (55-70%)Rt. Atrium3.2 (1.9-4.0cm)Asc. Aorta cm IVSd1.1 (0.7-1.1cm)RV (D) (1.8-2.4cm) PWd1.2 (0.7-1.1cm) Mitral Valve MitralMitral Stenosis E wave0.68m/sMV Mean GR.mmHg A wave0.79m/sMV Peak GR.mmHg E/A ratio0.92D MVAcm2 DECEL [id number] 1/2 [id number] IVRTmsDop MVA3.04cm2 Aortic Valve Aortic ValveAortic Stenosis V11.02m/Dorene Mean GR.4mmHg V21.42m/Dorene Peak GR.8mmHg LVOT Diameter2.0 (1.8-2.4cm)Doppler AVA2.26cm2 Pulmonic Valve V20.97m/s Tricuspid Valve TR Velocity1.72m/s [id number] Other Information Technically limited study due to body habitus and patient position. Conclusion 1. NORMAL LV EF AND IS 65% 2. NORMAL VALVES 3. NORMAL RV FUNCTION 4. NO EFFUSION
[2024-06-30] MEDS: LEVOTHYROXINE SODIUM 25 MCG TAB PO SCH (05:26)
[2024-06-30] MEDS: FAMOTIDINE 20 MG TAB PO SCH (09:42)
[2024-06-30] MEDS: ENOXAPARIN SOD 40 MG/0.4 ML SYRINGE SC SCH (09:42)
[2024-06-30] MEDS ORDERED: MECL12.586 PO (09:59)
[2024-06-30] MEDS: MECLIZINE HCL 25 MG TAB PO PRN (10:10)
--- NOTE | 2024-06-30 13:00 | DVHPN2 ---
Subjective The patient is seen and examined at bedside. No complaint today. Reviewed: Care Plan, H&P, Labs, Medications, Previous Orders, Radiology Changes from previous H/P or p: No Changes General: Per HPI Eyes: No Pain, No Vision change, No Conjunctivae inflammation, No Eyelid inflammation, No Other, No Redness ENT: No Ear pain, No Ear discharge, No Nose pain, No Nose discharge, No Nose congestion, No Mouth pain, No Mouth swelling, No Throat pain, No Throat swelling, No Other Cardiovascular: No Chest Pain, No Palpitations, No Orthopnea, No Paroxysmal Noc. Dyspnea, No Edema, No Lt Headedness, No Other Respiratory: No Cough, No Dry, No Shortness of breath, No SOB with excertion, No Wheezing, No Hemoptysis, No Pleuritic Pain, No Sputum, No Other Gastrointestinal: No Nausea, No Vomiting, No Abdominal Pain, No Diarrhea, No Constipation, No Melena, No Hematochezia, No Other Genitourinary: No Dysuria, No Frequency, No Incontinence, No Hematuria, No Retention, No Other Musculoskeletal: No other, No neck pain, No shoulder pain, No arm pain, No back pain, No hand pain, No leg pain, No foot pain Skin: No Rash, No Lesions, No Jaundice, No Bruising, No Other Objective Vitals Vital Signs Date Time Temp Pulse Resp B/P (MAP) Pulse Ox O2 Delivery O2 Flow Rate FiO2 06/30/24 09:19 97.7 60 20 108/64 (79) 98 97.7 06/30/24 08:00 Room Air* 0 21 Intake/Output Intake and Output 06/30/24 07:00 Intake Total 2240 ml Balance 2240 ml Intake Oral 400 ml IV Total 1840 ml # Voids 1 General Appearance: Alert, Oriented X3, Cooperative, No acute distress HEENT: Atraumatic, PERRLA, EOMI, Mucous membr. moist/pink Neck: Supple Lungs: Clear to auscultation, Normal air movement Cardiovascular: Regular rate, Normal S1, Normal S2, No murmurs, Gallops, Rubs Abdomen: Normal bowel sounds, Soft, No tenderness Neuro: Cranial nerves 3-12 NL Psych/Mental Status: Mental status NL Medications Current Medications Medications Dose Ordered Sig/Mina Route Start Time Stop Time Status Last Admin Dose Admin Sodium Chloride 1,000 ml @ 120 mls/hr Q8H20M IV 06/28/24 16:45 06/30/24 05:25 120 MLS/HR Ondansetron HCl 4 mg Q4HP PRN IV 06/28/24 16:45 Docusate Sodium 100 mg BIDPRN PRN PO 06/28/24 16:45 Morphine Sulfate 2 mg Q4HPRN PRN IV 06/28/24 16:45 Hold Nitroglycerin 0.4 mg Q5MINP PRN SL 06/28/24 16:45 Meclizine HCl 25 mg Q8HPRN PRN PO 06/28/24 16:45 06/30/24 10:10 25 MG Lorazepam 1 mg ONCE PRN IV 06/28/24 22:00 Levothyroxine Sodium 25 mcg QAM@0600 PO 06/30/24 06:00 06/30/24 05:26 25 MCG Atorvastatin Calcium 20 mg HS PO 06/29/24 22:00 06/29/24 21:46 20 MG Famotidine 20 mg DAILY PO 06/30/24 10:00 06/30/24 09:42 20 MG Enoxaparin Sodium 40 mg DAILY SC 06/30/24 10:00 Laboratory Results Laboratory Tests 06/29/24 04:58 Urinalysis Test 06/29/24 16:00 Urine Color Light-yellow (Yellow) Urine Clarity Clear (Clear) Urine pH 6.5 (5.0-9.0) Urine Specific [place] 1.008 (1.001-1.035) Urine Protein Negative (Negative) Urine Ketones Negative (Negative) Urine Blood Negative /uL (Negative) Urine Nitrite Negative (Negative) Urine Bilirubin Negative (Negative) Urine Urobilinogen Normal mg/dL (Negative) Urine Leukocyte Esterase 1+ /uL (Negative) Urine RBC 2 /hpf (0 - 4) Urine Microscopic WBC 4 /HPF (0-5) Urine Squamous Epithelial Cells Few /hpf (<5) Urine Bacteria None seen /hpf (None Seen) Urine Glucose Normal mg/dL (Normal) Labs and/or images reviewed: Labs reviewed by me Assessment/Plan Assessment/Plan # Acute vertigo, tingling and numbness, rule out stroke # Possible transient ischemic attack # Left-sided blurred vision # Possible benign paroxysmal positional vertigo. # Possible Meniere's disease # Gait disturbance secondary to vertigo - Head CT without contrast demonstrated normal brain and skull - CT of the internal auditory canal without IV contrast demonstrated temporal bones within normal limits, chronic deformity of the left lamina papyracea. - MRI of the head demonstrated no acute intracranial abnormality. - EKG with normal sinus rhythm - Neurology on board - Meclizine 25 mg Q 8 p.r.n. - IV normal saline at 120 mL/hour # Dyslipidemia - Atorvastatin 20 mg at HS # Chronic hypothyroidism - Levothyroxine 25 mcg at q.a.m. # PUD prophylaxis - Pepcid 20 mg p.o. daily # DVT prophylaxis - Lovenox 40 mg sc daily. This medical document was created using an electronic medical record system with [employer] computerized dictation system. Although this document has been carefully reviewed, there may still be some phonetic and typographical errors. These areas are purely typographical due to imperfections of the software programs, and do not reflect any compromise in the patient's medical care. Plan discussed with: Patient Date of Service: Jun 30, 2024 Billing Provider: VILMA CESPEDES MD Common Visit Codes: [id number] INP/OBS CARE(HIGH) VILMA CESPEDES MD Jun 30, 2024 13:00
[2024-06-30] MEDS: ONDANSETRON HCL 4 MG/2 ML VIAL IV PRN (15:16)
[2024-06-30] MEDS ORDERED: SODIUM CHLORIDE 0.9% 500 ML IV ONE (17:00)
[2024-06-30] MEDS: diphenhdrAMINE HCL 50 MG/1 ML VL IV ONE (17:11)
[2024-06-30] MEDS: SODIUM CHLORIDE 0.9% 500 ML IV ONE (17:30)
--- NOTE | 2024-06-30 22:40 | DVHPN2 ---
Progress Note - Dictate Date Seen: Jun 30, 2024 Medical Necessity Reason Pt with a Central, PICC or Fol: No Subjective Mr. Ruben Mccarthy is a 54 years old right-handed female with a history of dyslipidemia, thyroid disorder, GERD, she came to the [facility] on 06/28/2024 with a chief complaint of dizziness. I have seen and examined the patient, I have discussed with her nurse, she was alert and fully oriented. But it was no change in her dizziness, she still has intense spinning sensation, a lot nausea I do not see nystagmus No tenderness to palpation in the bilateral mastoid processes CBC, 06/28/2024: Unremarkable BMP, 06/28/2024: Unremarkable CMP, 06/22/2024: Unremarkable CT head, 06/28/2024: Normal brain and skull. CT, internal auditory canal, 06/28/2024: CT of the temporal bones within normal limits MRI head, 06/29/2024: No acute intracranial abnormality. Normal MRI of the brain without intravenous contrast vital signs Vital Sign Date Time Temp Pulse Resp B/P (MAP) Pulse Ox O2 Delivery O2 Flow Rate FiO2 06/30/24 17:00 97.9 60 18 107/61 (76) 94 97.9 06/30/24 08:00 Room Air* 0 21 Total Intake and Output 06/29/24 06/29/24 06/30/24 15:00 23:00 07:00 Intake Total 840 ml 1400 ml Balance 840 ml 1400 ml medications Current Medications Medications Dose Ordered Sig/Mina Route Start Time Stop Time Status Last Admin Dose Admin Sodium Chloride 1,000 ml @ 120 mls/hr Q8H20M IV 06/28/24 16:45 06/30/24 18:47 120 MLS/HR Ondansetron HCl 4 mg Q4HP PRN IV 06/28/24 16:45 06/30/24 15:16 4 MG Docusate Sodium 100 mg BIDPRN PRN PO 06/28/24 16:45 Morphine Sulfate 2 mg Q4HPRN PRN IV 06/28/24 16:45 Hold Nitroglycerin 0.4 mg Q5MINP PRN SL 06/28/24 16:45 Meclizine HCl 25 mg Q8HPRN PRN PO 06/28/24 16:45 06/30/24 20:14 25 MG Lorazepam 1 mg ONCE PRN IV 06/28/24 22:00 Levothyroxine Sodium 25 mcg QAM@0600 PO 06/30/24 06:00 06/30/24 05:26 25 MCG Atorvastatin Calcium 20 mg HS PO 06/29/24 22:00 06/30/24 22:30 20 MG Famotidine 20 mg DAILY PO 06/30/24 10:00 06/30/24 09:42 20 MG Enoxaparin Sodium 40 mg DAILY SC 06/30/24 10:00 objective General: the patient is well developed and nourished. No acute distress. MENTAL STATUS: Subjective SPEECH, LANGUAGE, HIGHER CORTICAL FUNCTION: no aphasia or dysathria. CRANIAL NERVES: Pupils are equal, round and reactive. EOMs full and conjugate. No nystagmus. Facial sensation intact in all three divisions bilaterally. Mandibular strength intact. Facial muscles symmetrical and strength intact. SENSATION: Sensation to touch and pinprick is normal. MOTOR: Normal tone in the upper and lower extremity. Normal muscle bulk. No fasciculations. No abnormal movements or posturing. Muscle strength of the major groups in the extremities is 5/5. REFLEXES: Deep tendon reflexes are symmetrical. No pathological reflexes. CEREBELLAR/COORDINATION: Finger to nose is normal bilaterally. GAIT/STATION: deferred laboratory and microbiology Laboratory Tests 06/29/24 04:58 Test 06/29/24 04:58 Range/Units Serum Glucose 94 74-106 mg/dL Problem List Vertigo Mnire disease Acute stroke Gait disturbance secondary to vertigo Left-sided blurred vision So far the etiology of her complaints is unknown Assessment/Plan Monitoring Supportive treatment Telemetry IV fluid Meclizine 25 mg Q 8 hours p.r.n. Physical therapy More recommendation per clinical course This medical document was created using an electronic medical record system with [employer] dictation system. Although this document has been carefully reviewed, there may still be some phonetic and typographical errors. These areas are purely typographical due to imperfections of the software programs, and do not reflect any compromise in the patient's medical care. Prognosis poor Plan discussed with: Other STEPHANIE WERNER MD Jun 30, 2024 22:40
[2024-07-01 05:00] VITALS: BP 99/64; PULSE 60; RESP 18; TEMP 97.7; O2SAT 96
[2024-07-01 09:00] VITALS: BP 109/62; PULSE 55; RESP 16; TEMP 98.2; O2SAT 98
[2024-07-01] MEDS ORDERED: LEVO25TA6 PO (10:58)
[2024-07-01] MEDS ORDERED: ZOFR4T PO (10:58)
[2024-07-01] MEDS ORDERED: MECL1TAB42 PO (10:58)
[2024-07-01] MEDS ORDERED: ATOR20TA50 PO (11:00)
[2024-07-01] MEDS ORDERED: SERT25TA28 PO (11:01)
--- NOTE | 2024-07-01 15:43 | DVHDSRES ---
Discharge Summary Date of Admission Resident Creating Document: FAM KENNEDY RESIDENT Jun 28, 2024 at 16:36 Date of Discharge: Jul 01, 2024 Admitting Diagnosis Acute vertigo, rule out stroke Wounds: No wound was present. Labs/Diagnostic Data: Laboratory Results Test 06/29/24 16:00 06/29/24 04:58 06/28/24 11:50 06/28/24 11:19 Urine Color Light-yellow (Yellow) Urine Clarity Clear (Clear) Urine pH 6.5 (5.0-9.0) Urine Specific [place] 1.008 (1.001-1.035) Urine Protein Negative (Negative) Urine Ketones Negative (Negative) Urine Blood Negative /uL (Negative) Urine Nitrite Negative (Negative) Urine Bilirubin Negative (Negative) Urine Urobilinogen Normal mg/dL (Negative) Urine Leukocyte Esterase 1+ /uL (Negative) Urine RBC 2 /hpf (0 - 4) Urine Microscopic WBC 4 /HPF (0-5) Urine Squamous Epithelial Cells Few /hpf (<5) Urine Bacteria None seen /hpf (None Seen) Urine Glucose Normal mg/dL (Normal) White Blood Count 6.0 10^3/uL (4.4-10.8) Red Blood Count 4.36 10^6/uL (4.0-5.20) Hemoglobin 14.0 g/dL (12.2-16.2) Hematocrit 40.3 % (36.0-46.0) Mean Corpuscular Volume 92.3 fL (80.0-100.0) Mean Corpuscular Hemoglobin 32.1 pg (28.0-32.0) Mean Corpuscular Hemoglobin Concent 34.8 g/dL (32.0-36.0) Red Cell Distribution Width 12.0 % (11.8-14.3) Platelet Count 258 10^3/uL (140-450) Mean Platelet Volume 7.5 fL (6.9-10.8) Neutrophils (%) (Auto) 49.3 % (37.0-80.0) Lymphocytes (%) (Auto) 43.2 % (10.0-50.0) Monocytes (%) (Auto) 5.7 % (0.0-12.0) Eosinophils (%) (Auto) 1.6 % (0.0-7.0) Basophils (%) (Auto) 0.2 % (0.0-2.0) Neutrophils # (Auto) 3.0 10 ^3/uL (1.6-8.6) Lymphocytes # (Auto) 2.6 10 ^3/uL (0.4-5.4) Monocytes # (Auto) 0.3 10 ^3/uL (0-1.3) Eosinophils # (Auto) 0.1 10 ^3/uL (0-0.8) Basophils # (Auto) 0 10 ^3/uL (0-0.2) Nucleated Red Blood Cells 0.1 % Sodium Level 140 mmol/L (136-145) Potassium Level 3.9 mmol/L (3.5-5.1) Chloride Level 106 mmol/L (98-107) Carbon Dioxide Level 27 mmol/L (20-31) Anion Gap 7 (5-15) Blood Urea Nitrogen 11 mg/dL (9-23) Creatinine 0.86 mg/dL (0.550-1.02) Glomerular Filtration Rate Calc 79 mL/min (>90) BUN/Creatinine Ratio 12.8 (10.0-20.0) Serum Glucose 94 mg/dL (74-106) Calcium Level 9.3 mg/dL (8.7-10.4) Total Bilirubin 0.5 mg/dL (0.2-1.0) Aspartate Amino Transferase (AST) 23 U/L (13-40) Alanine Aminotransferase (ALT) 37 U/L (7-40) Alkaline Phosphatase 74 U/L (46-116) Total Protein 6.9 g/dL (5.7-8.2) Albumin 4.4 g/dL (3.2-4.8) Vitamin B12 Level 706 pg/mL (211-911) Vitamin D 25-Hydroxy 30.8 ng/mL (30.0-100) Folic Acid 18.32 ng/mL (>5.38) Thyroid Stimulating Hormone (TSH) 4.63 uIU/mL (0.55-4.78) Troponin I High Sensitivity < 3 ng/L (</=34) POC Glucose 91 mg/dl (70-106) Other Laboratory Tests 06/29/24 04:58 Brief Hx & Hospital Course: This is a 54-year-old female with a past medical history of GERD, hyperlipidemia, hypothyroidism presented to the ED with a chief complaint of continuous dizziness and vertigo associated with nausea and vomiting for last 4 days prior to this admission. The patient states that her dizziness initially began as intermittent but has worsened progressively, prompting two prior ED visits, during which full workups were reportedly negative, and she was discharged home. She was prescribed meclizine twice daily and Zofran, which she has been taking as directed, but reports no relief of symptoms. Today, her dizziness became more intense, described as room-spinning vertigo, especially worse with walking. She also reports a severe headache but denies visual changes, chest pain, shortness of breath, nausea, vomiting, diarrhea, melena, or hematochezia. Hospital course: - Head CT without contrast demonstrated normal brain and skull ,CT of the internal auditory canal without IV contrast demonstrated temporal bones within normal limits, chronic deformity of the left lamina papyracea. MRI of the head demonstrated no acute intracranial abnormality. Neurology was on board and recommended Meclizine 25 mg Q 8 p.r.n. Orthostatic vital was negative, Nikole hernandez pike maneuver showed dizziness and vertigo but no nystagmus which was treated with Tristin's maneuver. EKG demonstrated normal sinus rhythm. Discharge plan was discussed with the patient and all questions were answered. Patient is being discharged to home with Meclizine 25 mg Q8hr and Zofran 4 mg Q8hr p.r.n for 7 days and advised to follow up with DC clinic in 1 week and outpatient ENT in 1 to 2 weeks. Physical examination: General Appearance: Alert, Oriented X3, Cooperative, No acute distress HEENT: Atraumatic, PERRLA, EOMI, Mucous membrane moist/pink Respiratory: Clear to auscultation, Normal air movement Cardiovascular: Regular rate, Normal S1, Normal S2, No murmurs, no chest wall tenderness Abdominal: Normal bowel sounds, Soft, No tenderness, No hepatospenomegaly, No masses Extremities: No clubbing, No cyanosis, No edema, Normal pulses, No tenderness/swelling Skin: No rashes, No breakdown, No significant lesion Neuro: Normal gait, Normal speech, Strength at 5/5 X4 ext, Normal tone, Sensation intact, Cranial nerves 3-12 NL, Reflexes 2+ Psych/Mental Status: Mental status NL, Mood NL Consults/Reason for consult Neurology was consulted Operations or Procedures CT brain without contrast CLINICAL INDICATION: Altered mental status FINDINGS: The study was performed in a multidetector scanner. This study performed taking axial images from the skull base up to the vertex. Both brain and bone windows are photographed. Dose lowering techniques have been used including automated exposure control and adjustment of mA and/or KV according to patient size. Normal and symmetrical shape and density of brain parenchyma above and below the tentorium is seen. There is no mass, midline shift or hydrocephalus. No intra/extra-axial collections demonstrated. There is no intracranial hemorrhage. The calvarium is intact. IMPRESSION: 1. Normal brain and skull. INDICATION: eval for acute vertigo EXAM DATE: 06/28/2024 04:42 PM COMPARISON: CT head 06/29/2023 TECHNIQUE: CT of the IAC without intravenous contrast. RADIATION DOSE: CTDIvol: 57.82 mGy, DLP: 589.16 mGy*cm FINDINGS: Right: The external auditory canal appears intact. The middle ear cavity is clear. The ossicular chain appears intact. The facial nerve describes a normal course. No inner ear abnormality is identified. The tegmen appears intact. The semicircular canals appear covered by bone. The mastoid air cells are well aerated and pneumatized. Left: The external auditory canal appears intact. The middle ear cavity is clear. The ossicular chain appears intact. The facial nerve describes a normal course. No inner ear abnormality is identified. The tegmen appears intact. The semicircular canals appear covered by bone. The mastoid air cells are well aerated and pneumatized. The limited visualized soft tissues are otherwise unremarkable. Chronic deformity of the left lamina papyracea. The orbits and globes unremarkable. IMPRESSION: CT of the temporal bones within normal limits. PROCEDURE: MRI OF THE BRAIN WITHOUT CONTRAST. CLINICAL INDICATION: 54 years old, Female; Vertigo. TECHNIQUE: Multiplanar, multi sequence MRI of the brain was performed without intravenous contrast. COMPARISON: CT scan of the head performed on 06/28/2024. FINDINGS: The signal abnormality of the brain parenchyma is within normal limits. There are no areas of restricted diffusion to suggest acute infarct. No evidence of space occupying mass lesion, extra-axial collections or hemorrhage is noted. The ventricles, sulci and basal cisterns are intact. There is no signal abnormality in the posterior fossa. The paranasal sinuses and mastoid air cells are well pneumatized. The orbits and nasopharynx are intact. The osseous structures are intact. The vessels of the skull base demonstrate signal void consistent with patency. IMPRESSION: 1. No acute intracranial abnormality. Normal MRI of the brain without intravenous contrast. Condition at Discharge: Guarded Final Diagnosis/Problems List # Acute vertigo, tingling and numbness, ruled out stroke # Possible transient ischemic attack # Left-sided blurred vision # Possible benign paroxysmal positional vertigo. # Possible Meniere's disease # Gait disturbance secondary to vertigo # Dyslipidemia # Chronic hypothyroidism Discharge Disposition: Home Discharge Instruct/Medications Diet: Cardiac 2g Na,low cholest Activity: No Restrictions, As Tolerated Follow Up/Referral: Follow up with DC clinic in 1 week. Follow up with outpatient ENT in 1-2 weeks Medications: As per EMR Discharge Statement: "Patient was advised to return to the ER or call 911 if any headaches, dizziness, shortness of breath, chest pain, abdominal pain, bleeding, fevers, or worsening of medical condition. Patient was counseled about treatment plan, medications, possible side effects, patientverbalized understanding. All questions were answered to the best of my ability. This discharge took greater then 30 minutes in planning, reviewing documentation, counseling the patient, and discussing with other team members." ASSESSMENT ASSESSMENT Assessment # Acute vertigo, tingling and numbness, ruled out stroke # Possible transient ischemic attack # Left-sided blurred vision # Possible benign paroxysmal positional vertigo. # Possible Meniere's disease # Gait disturbance secondary to vertigo # Dyslipidemia # Chronic hypothyroidism Date of Service: Jul 01, 2024 Billing Provider: VILMA CESPEDES MD Common Visit Codes: [id number] DISCH DAY >30min FAM KENNEDY RESIDENT Jul 01, 2024 15:43 VILMA CESPEDES MD Jul 02, 2024 11:26
== END 2024-07-01 14:43 | disposition home or self-care (01) | DRG 47 ==
LOC: ER 10:53 → OVERFLOW 16:36 → EAST 06-29 17:05
PROVIDERS: ADMIT Internal Medicine; ATTEND Internal Medicine
DX: G45.9 Transient cerebral ischemic attack, unspecified (principal); E03.9 Hypothyroidism, unspecified; E78.5 Hyperlipidemia, unspecified; H53.8 Other visual disturbances; H81.02 Meniere's disease, left ear; H81.12 Benign paroxysmal vertigo, left ear; K21.9 Gastro-esophageal reflux disease without esophagitis; R26.89 Other abnormalities of gait and mobility; Z79.899 Other long term (current) drug therapy; Z74.01 Bed confinement status; Z83.3 Family history of diabetes mellitus; Z80.8 Family history of malignant neoplasm of other organs or systems; Z88.8 Allergy status to other drugs, medicaments and biological substances
CPT/HCPCS: 36415; 70450; 70480; 70551; 80048; 80053; 81001; 82306; 82607; 82746; 82962; 84443; 84484; 85025; 93005; 93306; 97116; 97163; 97530; G0378; J2405